=== PATIENT | female | born 1995 | race African-American/Black ===

== ENCOUNTER 2019-10-26 08:24 | Emergency (ER) | payer OTHER, SELFPAY ==
[2019-10-26 08:33] VITALS: BP 144/82; PULSE 104; RESP 16; TEMP 36.9; O2SAT 99
--- NOTE | 2019-10-26 08:50 | ED.EAR ---
HPI - Ear Problem General Chief complaint: Ear Stated complaint: Ear Pain Source: patient Mode of arrival: ambulatory Limitations: no limitations History of Present Illness HPI Narrative: Lety Allen is a 24 yo female with no PMH who comes to [facility] care with complaints of cough and left ear pain. Left ear is draining, has started 3 days ago. She has been running a fever of 101 Related Data Allergies Allergy/AdvReac Type Severity Reaction Status Date / Time No Known Allergies Allergy Unverified 10/26/18 12:54 Review of Systems Review of Systems: Narrative: CONSTITUTIONAL: Denies fever, chills, sweats. EYES: Denies visual changes, redness, discharge. ENT: Has rhinorrhea, congestion, sore throat, left greater than right otalgia. CARDIOVASCULAR: Denies chest pain, palpitations, edema. RESPIRATORY: Denies dyspnea, wheezing, dry cough GASTROINTESTINAL: Denies abdominal pain, nausea, vomiting, diarrhea. GENITOURINARY: Denies dysuria, hematuria, abnormal discharge SKIN: Denies rash or itching. MUSCULOSKELETAL: Denies acute back pain, joint pain, or myalgia. NEUROLOGIC: Denies numbness, or focal weakness. PSYCHIATRIC: Denies anxiety or depression. [facility] Family History Family History Other Diabetes mellitus Heart disease Hypertension Social History Social History (Updated 10/26/19 @ 08:58 by Andreea Dumont CNP) Smoking status: Never smoker Alcohol intake: never Gender identity (if verbalized by the patient): Female Comments At time of signature, I agree with nursing past medical, surgical, social and family history. There is no relevant family history pertinent to the presenting complaint. Blood pressure is elevated today, recommend the patient follow-up with PCP for recheck Exam Narrative: Exam Narrative: GENERAL: This is a well-nourished, well-developed patient, in mild distress. HEAD: normocephalic, atraumatic. EYES: Sclera clear/white. Vision is grossly intact. EARS: External ears normal, auditory canals erythema with left-sided drainage, TMs normal without perforation. Hearing grossly intact. NOSE: External nose normal with nasal discharge, nares with redness, rhinorrhea. THROAT: Mucous membranes moist, posterior pharynx erythema. NECK: Neck supple, non-tender CARDIOVASCULAR: Tachycardic and rhythm without murmurs, gallops, or rubs. RESPIRATORY: Clear to auscultation. Breath sounds equal bilaterally. No wheezes, rales, or rhonchi. GASTROINTESTINAL: Abdomen soft, non-tender, SKIN: warm, intact with no suspicious lesions or rash, good texture and turgor. NEURO: awake, alert, and oriented to person, place and time. There were no obvious focal neurologic abnormalities. Steady gait EXTREMITIES: Normal range of motion. No edema. BACK: Nontender without deformity or crepitance. . Course Course Emergency Course: Started on eardrops, Delsym, Mucinex Vital Signs Vital signs: Vital Signs Temperature 98.5 F 10/26/19 08:33 Pulse Rate 104 H 10/26/19 08:33 Respiratory Rate 16 10/26/19 08:33 Blood Pressure 144/82 H 10/26/19 08:33 Pulse Oximetry 99 10/26/19 08:33 Temperature 98.5 F 10/26/19 08:33 Pulse Rate 104 H 10/26/19 08:33 Respiratory Rate 16 10/26/19 08:33 Blood Pressure 144/82 H 10/26/19 08:33 Pulse Oximetry 99 10/26/19 08:33 Medical Decision Making Differential Diagnosis Differential Diagnosis: Ear pain versus otitis versus respiratory infection Vital Signs Vital Signs: Vital Signs Temperature 98.5 F 10/26/19 08:33 Pulse Rate 104 H 10/26/19 08:33 Respiratory Rate 16 10/26/19 08:33 Blood Pressure 144/82 H 10/26/19 08:33 Pulse Oximetry 99 10/26/19 08:33 Temperature 98.5 F 10/26/19 08:33 Pulse Rate 104 H 10/26/19 08:33 Respiratory Rate 16 10/26/19 08:33 Blood Pressure 144/82 H 10/26/19 08:33 Pulse Oximetry 99 10/26/19 08:33 Discharge Plan Discharge Clinical
== END 2019-10-26 09:11 | disposition home or self-care (01) ==
PROVIDERS: Emergency Provider Nurse Practitioner
DX: H65.02 Acute serous otitis media, left ear (principal)
CPT/HCPCS: 99213; G0463

== ENCOUNTER 2019-10-27 10:49 | Emergency (ER) | payer OTHER, SELFPAY ==
[2019-10-27 10:54] VITALS: BP 138/76; PULSE 93; RESP 18; TEMP 36.6; O2SAT 98
--- NOTE | 2019-10-27 11:34 | ED.EAR ---
HPI - Ear Problem General Chief complaint: Ear Stated complaint: Ear Pain Time Seen by Provider: 10/27/19 11:33 Source: patient and RN notes reviewed Mode of arrival: ambulatory Limitations: no limitations History of Present Illness HPI Narrative: This patient had onset of bilateral ear pain left greater than right that began on the evening of 10/25/2019 and increased onto 04/2020. She was seen and given prescription for Cortisporin eardrops, but the pain is increased. Is been no drainage from either ear. She has had no nasal drainage, no sore throat, no fever, no cough. She has had no nausea, no vomiting, no diarrhea. She has had no hematuria, no dysuria, no pyuria. She has had no rashes. She said no known exposure to anyone with strep throat, mono, influenza, bronchitis, pneumonia that she is aware of. Related Data Allergies Allergy/AdvReac Type Severity Reaction Status Date / Time No Known Allergies Allergy Unverified 10/26/18 12:54 Review of Systems Review of Systems: Narrative: CONSTITUTIONAL: Denies fever, chills, or sweats. Noncontributory except as pertains to the past medical history and history of present illness. EYES: Denies visual changes, redness, or discharge. ENT: Denies rhinorrhea, congestion, sore throat, or otalgia. CARDIOVASCULAR: Denies chest pain, palpitations, or edema. RESPIRATORY: Denies cough or dyspnea. GASTROINTESTINAL: Denies abdominal pain, nausea, vomiting, or diarrhea. GENITOURINARY: Denies dysuria or hematuria. SKIN: Denies rash or itching. MUSCULOSKELETAL: Denies back pain, joint pain, or myalgia. NEUROLOGIC: Denies headache, numbness, or weakness. PSYCHIATRIC: Denies anxiety or depression. [facility] Social History Social History (Updated 10/26/19 @ 08:58 by Andreea Dumont CNP) Smoking status: Never smoker Alcohol intake: never Gender identity (if verbalized by the patient): Female Comments At time of signature, I have reviewed and agree with nursing past medical, surgical, social, and family history.Please see nursing chart for further information. There is no relevant family history pertinent to the presenting complaint. Exam Narrative: Exam Narrative: GENERAL: Well-appearing, well-nourished, and in no acute distress. HEAD: Normocephalic, atraumatic. EYES: PERRLA and EOMI. EARS:Both eardrums are erythematous, mildly bulging, but not perforated. The canals appear clear. She has negative tragus signs bilaterally. NOSE: Nares clear, no rhinorrhea or epistaxis. THROAT:Mucous membranes moist.Oropharynx Normal without erythema or exudates. NECK: Supple. No adenopathy of the neck, supraclavicular, axillary, or inguinal areas. RESPIRATORY: No respiratory distress. Airway patent. Respirations non-labored. Clear to auscultation. There are no wheezes, no rales, no retractions, no use of accessory muscle respirations. She is not cyanotic and not dyspneic. Her pulse ox on room air is 98% current temperature is 36.6 ?C. HEART: Regular rate and rhythm. No murmur heard. Normal peripheral pulses. ABDOMEN: Soft, nontender, nondistended, normal active bowel sounds.No masses. No rebound or guarding, No organomegaly. No CVA pain. No pain McBurney's point. She has a negative Kat sign and negative Rovsing sign. There are no pulsatile masses no audible bruits. EXTREMITIES: No clubbing/cyanosis/ edema. Normal strength & range of motion. SKIN: Warm, dry.Normal color. No skin rash or skin lesions. She is well-nourished well-hydrated has moist mucous membranes and no tenting of the skin. NEURO: Alert and oriented.CN 2-12 grossly intact. No focal deficits. PSYCH: Normal mood and affect. Course Vital Signs Vital signs: Vital Signs Temperature 36.6 C 10/27/19 10:54 Pulse Rate 93 10/27/19 10:54 Respiratory Rate 18 10/27/19 10:54 Blood Pressure 138/76 10/27/19 10:54 Pulse Oximetry 98 10/27/19 10:54 Temperature 36.6 C 10/27/19 10:54 Pulse Rate 93 10/27/19 10:5
== END 2019-10-27 11:48 | disposition home or self-care (01) ==
PROVIDERS: Emergency Provider Family Medicine
DX: H66.003 Acute suppurative otitis media without spontaneous rupture of ear drum, bilateral (principal)
CPT/HCPCS: 99213; G0463

== ENCOUNTER 2022-02-22 16:45 | Emergency (ER) | payer OTHER, SELFPAY ==
[2022-02-22 17:14] VITALS: BP 137/73; PULSE 108; RESP 14; TEMP 36.2; O2SAT 100
--- NOTE | 2022-02-22 17:45 | ED.URI ---
HPI - URI/Sore Throat General Chief Complaint: Upper Respiratory Infection Stated Complaint: SORE THROAT Time Seen by Provider: 02/22/22 17:40 History of Present Illness HPI Narrative: 26-year-old female presents emergency room with gradual onset of a sore throat. Patient states that both of her tonsils were swollen and touching her uvula . Patient denies fever. Patient denies cough. Patient denies difficulty swallowing. Patient denies postnasal drip, sinus congestion, or ear pain. Patient denies any exposure to sick contacts. Related Data Allergies Allergy/AdvReac Type Severity Reaction Status Date / Time No Known Allergies Allergy Unverified 10/26/18 12:54 Review of Systems Review of Systems: CONSTITUTIONAL: Denies fever, chills, or sweats. EYES: Denies visual changes, redness, or discharge. ENT: Reports sore throat CARDIOVASCULAR: Denies chest pain, palpitations, or edema. RESPIRATORY: Denies cough or dyspnea. GASTROINTESTINAL: Denies abdominal pain, nausea, vomiting, or diarrhea. GENITOURINARY: Denies dysuria or hematuria. SKIN: Denies rash or itching. MUSCULOSKELETAL: Denies back pain, joint pain, or myalgia. NEUROLOGIC: Denies headache, numbness, dizziness, or weakness. PSYCHIATRIC: Denies anxiety or depression. [facility] Family History Family History Other Diabetes mellitus Heart disease Hypertension Social History Social History Smoking status: Never smoker Alcohol intake: never Gender identity (if verbalized by the patient): Female Exam Narrative: GENERAL: Well-appearing, well-nourished, and in no acute distress. HEAD: Normocephalic, atraumatic. EYES: PERRLA and EOMI. ENT: Nares clear, no rhinorrhea or epistaxis. Mucous membranes moist. Bilateral tonsillar columns are +3, no evidence of erythema, purulence or lesions. Bilateral TMs pearly watson nonbulging NECK: Supple. No adenopathy or masses. CHEST: Clear to auscultation. No respiratory distress. No wheezes rales or rhonchi HEART: Regular rate and rhythm. No murmur heard. Normal peripheral pulses. ABDOMEN: Soft, nontender, nondistended, normal active bowel sounds. EXTREMITIES: Normal range of motion. No edema. SKIN: Warm, dry, no rash. NEURO: No focal deficits. Alert and oriented x3. PSYCH: Normal mood and affect. Course Vital Signs Vital signs: Vital Signs Temperature 36.2 C L 02/22/22 17:14 Pulse Rate 108 H 02/22/22 17:14 Respiratory Rate 14 02/22/22 17:14 Blood Pressure 137/73 02/22/22 17:14 Pulse Oximetry 100 02/22/22 17:14 Oxygen Delivery Room Air 02/22/22 17:14 Temperature 36.2 C L 02/22/22 17:14 Pulse Rate 108 H 02/22/22 17:14 Respiratory Rate 14 02/22/22 17:14 Blood Pressure 137/73 02/22/22 17:14 Pulse Oximetry 100 02/22/22 17:14 Oxygen Delivery Room Air 02/22/22 17:14 MDM - URI/Sore Throat Lab Data Labs: Strep Screen Presumptive Negative *(Reference Range: Negative)* Discharge Plan Discharge Clinical Impression: Upper respiratory infection, Acute sore throat Patient Disposition: Home, Self-Care Condition: Stable Instructions: Antibiotic Form, Tonsillitis (ED) Prescriptions: New prednisone 20 mg tablet 40 mg PO DAILY Qty: 10 0RF No Action Cortisporin-TC 3.3-3-10-0.5 mg/mL drops,suspension 4 drop LEFT EAR TID Qty: 10 0RF pseudoephedrine-guaifenesin [Mucinex D] 60-600 mg tablet extended release 12 hr 1 tablet PO BID PRN (Reason: cold symptoms) Qty: 30 0RF codeine-guaifenesin 10-100 mg/5 mL liquid 10 ml PO Q4-6H PRN (Reason: cough) Qty: 180 0RF amoxicillin-pot clavulanate 875-125 mg tablet 1 tablet PO Q12H Qty: 20 0RF Follow-up/Referrals: PHYSICIAN,[employer] [Primary Care Provider] - Time of Disposition: 17:50
== END 2022-02-22 18:07 | disposition home or self-care (01) ==
PROVIDERS: Emergency Provider Nurse Practitioner Family
DX: J06.9 Acute upper respiratory infection, unspecified (principal); J02.9 Acute pharyngitis, unspecified
CPT/HCPCS: 81025; 87081; 87880; 96372; 99283; J1100

== ENCOUNTER 2025-09-15 05:43 | Emergency (ER) | payer OTHER, SELFPAY ==
[2025-09-15 05:44] VITALS: BP 135/78; PULSE 100; RESP 18; TEMP 36.7; O2SAT 100
--- NOTE | 2025-09-15 06:08 | ED_ITS ---
HPI - Fever General Chief Complaint: Fever Stated Complaint: Fever, 7 weeks preg Time Seen by Provider: 09/15/25 05:55 History of Present Illness HPI Narrative: 30-year-old otherwise healthy female about 7 weeks based on menstrual period presenting to the emergency department today with complaints of myalgias, fever responsive to Tylenol, body aches and not feeling well. 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 Denies any abdominal pain, vaginal bleeding, vaginal leakage of fluids. Has no OBGYN appointment in 2 weeks. Was otherwise in her normal state of health. No nausea, vomiting, sore throat, difficulty swallowing, headache, vision changes, leg swelling. Thinks it could be flu or COVID. Did not get her vaccines this year. Has had COVID in the past. Related Data Allergies Allergy/AdvReac Type Severity Reaction Status Date / Time No Known Allergies Allergy Unverified 10/26/18 12:54 [facility] Family History Family History Other Diabetes mellitus Heart disease Hypertension Social History Social History Smoking status: Never smoker Alcohol intake: never Gender identity (if verbalized by the patient): Female Course Vital Signs Vital signs: Vital Signs Temperature 36.7 C 09/15/25 05:44 Pulse Rate 100 09/15/25 05:44 Respiratory Rate 18 09/15/25 05:44 Blood Pressure 135/78 09/15/25 05:44 Pulse Oximetry 100 09/15/25 05:44 Oxygen Delivery Room Air 09/15/25 05:44 Temperature 37.0 C 09/15/25 06:59 Pulse Rate 99 09/15/25 06:59 Respiratory Rate 18 09/15/25 06:59 Blood Pressure 142/85 H 09/15/25 06:59 Pulse Oximetry 97 09/15/25 06:59 Oxygen Delivery Room Air 09/15/25 05:44 MDM MDM Narrative Medical decision making narrative: 30-year-old otherwise healthy female about 7 weeks based on menstrual period presenting to the emergency department today with complaints of myalgias, fever responsive to Tylenol, body aches and not feeling well. 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 Denies any abdominal pain, vaginal bleeding, vaginal leakage of fluids. Has no OBGYN appointment in 2 weeks. Was otherwise in her normal state of health. No nausea, vomiting, sore throat, difficulty swallowing, headache, vision changes, leg swelling. Thinks it could be flu or COVID. Did not get her vaccines this year. Has had COVID in the past. Patient has a benign physical examination. Vital signs reassuring. No fever here but she did just take Tylenol. No tachycardia, hypoxemia or significant blood pressure concerns. Consistent symptoms with viral infection, COVID, flu, RSV so swabs were obtained. Tested positive for COVID. Recommendations are for symptom control medications and Tylenol for fever. Safe for discharge home at this time. Differential Diagnosis Differential Diagnosis: Consistent symptoms with viral infection, COVID, flu, RSV so swabs were obtained. Lab Data MDM Lab Attestation statement: I personally reviewed the patient's lab results. Labs: Lab Results 09/15/25 Range/Units 05:52 Influenza A (RT-PCR) Negative (Negative) Influenza B (RT-PCR) Negative (Negative) RSV (RT-PCR) Negative (Negative) SARS-CoV-2 RNA (RT-PCR) Positive A (Negative) Discharge Plan Discharge Clinical Impression: COVID Patient Disposition: Home Condition: Stable Instructions: Antibiotic Form, COVID-19 (Coronavirus Disease 2019) (ED) Additional Instructions: Tested positive for COVID. Symptoms will be managed with Tylenol every 6-8 hours for fever and pain control as well as [id number] cold and flu remedies. You can take Zyrtec, Claritin or other decongestion for upper respiratory symptoms. Maintain good hydration and drink lots of fluids. Follow-up with your regular primary care provider and OBGYN. Return with any emergent concerns. Symptoms typically last 5-10 days. Patient Language: Upper Sorbian Prescriptions: No Action Cortisporin-TC 3.3-3-10-0.5 mg/mL drops,suspension 4 drop LEFT EAR TID Qty: 10 0RF pseudoephedrine-guaifenesin [Mucinex D] 60-600 mg tablet extended release 12 hr 1 tablet PO BID PRN (Reason: cold symptoms) Qty: 30 0RF codeine-guaifenesin 10-100 mg/5 mL liquid 10 ml PO Q4-6H PRN (Reason: cough) Qty: 180 0RF amoxicillin-pot clavulanate 875-125 mg tablet 1 tablet PO Q12H Qty: 20 0RF prednisone 20 mg tablet 40 mg PO DAILY Qty: 10 0RF Follow-up/Referrals: PHYSICIAN NOT ON STAFF,NONSTAFF [Non-Staff] Time of Disposition: 06:44
[2025-09-15 06:34] LABS: Influenza A QL RT-PCR Negative (Negative); Influenza B QL RT-PCR Negative (Negative); RSV RNA, RT-PCR Negative (Negative); SARS-CoV-2 RNA PCR Positive (Negative)
[2025-09-15 06:59] VITALS: BP 142/85; PULSE 99; RESP 18; TEMP 37; O2SAT 97
== END 2025-09-15 07:03 | disposition home or self-care (01) ==
PROVIDERS: Emergency Provider Student in an Organized Health Care Education/Training Program
DX: O98.511 Other viral diseases complicating pregnancy, first trimester (principal); U07.1 COVID-19; Z3A.01 Less than 8 weeks gestation of pregnancy; Z86.16 Personal history of COVID-19
CPT/HCPCS: 87637; 99283